=== PATIENT | female | born 1985 | race African-American/Black ===

== ENCOUNTER 2021-04-03 15:34 | Emergency (ER) | payer OTHER ==
[2021-04-03 15:54] VITALS: BP 158/83; PULSE 78; TEMP 98; BMI 33.9
[2021-04-03] MEDS ORDERED: DIPHTH,PERTUSS(ACELL),TET 0.5 ML DISP.SYRIN IM ONE (17:19)
[2021-04-03] MEDS ORDERED: ACETAMINOPHEN 325 MG TABLET (FP) PO ONE (17:19)
[2021-04-03] MEDS ORDERED: ACETAMINOPHEN 325 MG TABLET (FP) ONE (17:22)
== END 2021-04-03 19:35 | disposition home or self-care (01) ==
LOC: JER 15:34
PROC: 3E0234Z Introduction of Serum, Toxoid and Vaccine into Muscle, Percutaneous Approach (ICD-10-PCS; principal; 2021-04-03)
DX: M25.512 Pain in left shoulder (principal); M79.644 Pain in right finger(s)
CPT/HCPCS: 73030-TC-LT-FY; 73110-TC-RT-FY; 73130-TC-RT-FY; 90715; 99284-25